=== PATIENT | female | born 1930 | race Caucasian/White ===

== ENCOUNTER 2019-07-01 14:07 | Inpatient (IN) | payer MEDICARE ==
[~2019-07-01] VITALS: Ht 162.6 cm; Wt 53.5 kg
--- NOTE | 2019-07-01 14:16 | NUR ---
PT AAOX4. BIB [facility] FROM AN URGENT CARE, PT WENT THERE BECAUSE OF SUDDEN DIZZINESS. UPON ASSESSMENT NO NEURO DEFICIT, RR EVEN AND UNALABORED. LABS COLLECTED, AND IV INITIATED. MD AT BEDSIDE. WILL CONTINUE TO MONITOR.
[2019-07-01] MEDS ORDERED: IV NS 0.9% 500 ML BAG IV ONE (14:30)
[2019-07-01 14:43] LABS: BASOPHILS # (AUTO) 0.1 /CMM (0.0-0.2); BASOPHILS % (AUTO) 1.4 % (0.0-2.0); EOSINOPHILS % (AUTO) 1.6 % (0.0-6.0); HEMATOCRIT 35 % (33-45); HEMOGLOBIN 12.2 g/dL (11.5-14.8); LYMPHOCYTES # (AUTO) 1.5 /CMM (0.8-4.8); LYMPHOCYTES % (AUTO) 21.1 % (20.0-44.0); MEAN CORPUSCULAR HGB CONC 35 g/dl (31.0-36.0); MEAN CORPUSCULAR VOLUME 104 fL (82-100); MONOCYTES # (AUTO) 0.8 /CMM (0.1-1.30); MONOCYTES % (AUTO) 11.8 % (2.0-12.0); NEUTROPHILS # (AUTO) 4.5 /CMM (1.8-8.9); NEUTROPHILS % (AUTO) 64.1 % (43.0-81.0); PLATELET COUNT (AUTO) 476 /CMM (150-450); RED BLOOD CELL COUNT(AUTO) 3.39 MIL/uL (4.0-5.2); WHITE BLOOD COUNT (AUTO) 7.1 K/uL (4.3-11.0)
[2019-07-01 14:44] LABS: CALCIUM, SERUM 9.4 mg/dL (8.5-10.1); CARBON DIOXIDE 24 mmol/L (21-32); CHLORIDE 99 mmol/L (98-107); GLUCOSE 133 mg/dL (74-106); SODIUM SERUM 136 mmol/L (136-145); UREA NITROGEN, BLOOD 14 mg/dL (7-18)
[2019-07-01 14:49] LABS: ALANINE AMINOTRANSFERASE 27 U/L (12-78); ALBUMIN 4.2 g/dL (3.4-5.0); ALKALINE PHOSPHATASE 65 U/L (46-116); ASPARTATE AMINOTRANSFERASE 24 U/L (15-37); BILIRUBIN,DIRECT 0.1 mg/dL (0.0-0.2); BILIRUBIN,TOTAL 0.6 mg/dL (0.2-1.0); TOTAL PROTEIN, SERUM 7.6 g/dL (6.4-8.2)
[2019-07-01] MEDS ORDERED: LEVO25TA7 PO (14:49)
[2019-07-01] MEDS ORDERED: CLON1PAT TD (14:49)
[2019-07-01] MEDS ORDERED: PANT40TA2 PO (14:49)
[2019-07-01] MEDS ORDERED: METF-440 PO (14:49)
[2019-07-01] MEDS ORDERED: EPLE25TA10 PO (14:49)
[2019-07-01] MEDS ORDERED: APIX2.5T PO (14:49)
[2019-07-01] MEDS ORDERED: QUET25TA PO (14:49)
[2019-07-01] MEDS ORDERED: LOSA100T31 PO (14:49)
[2019-07-01] MEDS ORDERED: ATOR40TA PO (14:49)
[2019-07-01 14:57] LABS: APPEARANCE,URINE Clear (CLEAR); BILIRUBIN,URINE Negative (NEGATIVE); BLOOD, URINE Negative Ery/uL (NEGATIVE); COLOR,URINE Yellow (YELLOW); KETONES,URINE Negative (NEGATIVE); LEUKOCYTE ESTERASE ,URINE Negative (NEGATIVE); NITRITE, URINE Negative (NEGATIVE); PROTEIN,URINE Negative (NEGATIVE); UGLUCOSE Negative (NEGATIVE); UROBILINOGEN,URINE 0.2 EU/dL (0.2)
--- NOTE | 2019-07-01 15:06 | NUR ---
Leonor howard in [facility] - 07/01/19 at 1712 by KAILEY CALLED [facility] FOR MEDICAL HX AND MED LIST INFO FOR PT. WILL FAX OVER INFO. WHEN READY TO PRESENT, CALL BACK [facility].
--- NOTE | 2019-07-01 15:39 | NUR ---
Leonor howard in [facility] - 07/01/19 at 1608 by KAILEY CURLY BRIDGES.
--- NOTE | 2019-07-01 15:39 | NUR ---
PAGED [facility].
--- NOTE | 2019-07-01 15:40 | NUR ---
left a message on Jesus
--- NOTE | 2019-07-01 15:44 | NUR ---
CALLED HER [employer]IL WELL SHOOTER [phone] AND LEFT A MESSAGE AT PTS REQUEST
--- NOTE | 2019-07-01 15:48 | NUR ---
CALLED [facility] [phone] AND SPOKE WITH HIM. GAVE HIM THE HOSPITAL NUMBER
--- NOTE | 2019-07-01 16:05 | NUR ---
CALLED NURSING SUP FOR TELE BED.
[2019-07-01] MEDS ORDERED: ACETAMINOPHEN 325 MG TABLET PO PRN (16:30)
[2019-07-01] MEDS ORDERED: MORPHINE SULFATE INJ 2 MG/ML DISP.SYRIN IV PRN (16:30)
[2019-07-01] MEDS ORDERED: MAG HYDROX/AL HYDROX/SIMETH 30 ML UDC PO PRN (16:30)
[2019-07-01] MEDS ORDERED: HYDROCODONE/APAP 5/325MG 1 EACH TABLET PO PRN (16:30)
[2019-07-01] MEDS ORDERED: ONDANSETRON HCL/PF 4 MG/2 ML VIAL IVP PRN (16:30)
[2019-07-01] MEDS ORDERED: MAGNESIUM HYDROXIDE 30 ML UDC PO PRN (16:30)
--- NOTE | 2019-07-01 16:31 | NUR ---
nursing sup gave [phone].
--- NOTE | 2019-07-01 16:44 | NUR ---
REPORT MARISSA MORRIS RN FOR KORY
[2019-07-01 17:00] VITALS: BP 188/75
[2019-07-01] MEDS ORDERED: hydrALAZINE HCL IV 20 MG VIAL IV PRN (17:00)
[2019-07-01] MEDS ORDERED: CLONIDINE HCL 0.1MG/24H PTWK 1 EA PATCH TD SCH (17:00)
--- NOTE | 2019-07-01 17:39 | NUR ---
PT TRANSFERED PER [facility] [employer]
[2019-07-01] MEDS: METFORMIN 500 MG TABLET PO SCH (17:47)
--- NOTE | 2019-07-01 17:51 | NUR ---
FACILITY SECURITY OFFICER OPENING NOTES RECEIVED PATIENT VIA OYE!FREEDOM. ALERT AND ORIENTED X4. NO SOB. DENIES ANY C/O PAIN NOR DISCOMFORT AT THIS TIME. NOTED BP 188/80, PRN BP MED GIVEN ORDERED. PATIENT DENIES ANY C/O HEADACHE, DIZZINESS, PRESSURE OR ANY OTHER S/S OF PAIN NOR DISCOMFORT. AMBULATORY WITH STEADY GAIT. ON TELEMONITORING SR 82. BLE EDEMA NON PITTING OBSERVED. ELEVATED WITH PILLOW. ATE DINNER WITH FAIR INTAKE. BS 133 MG/DL. ORIENTED PATIENT TO ROOM, ROOMMATE AND UNIT. BED IN LOWEST POSITION, LOCKED. BED ALARM ON. CALL LIGHT WITHIN REACH. BED SIDERAILS UP X2.
[2019-07-01 18:03] LABS: MAGNESIUM 1.5 mg/dL (1.8-2.4); PHOSPHORUS 3.8 mg/dL (2.5-4.9)
[2019-07-01] MEDS: AMLODIPINE BESYLATE 10 MG TABLET PO SCH (18:05)
[2019-07-01] MEDS: APIXABAN 2.5 MG TABLET PO SCH (18:05)
[2019-07-01 18:16] LABS: THYROID STIMULATING HORMONE 0.969 uIU/mL (0.358-3.74)
[2019-07-01] MEDS: IV NS 0.9% 1,000 ML IV PRN (18:22)
--- NOTE | 2019-07-01 18:50 | NUR ---
MS RN NOTES IV NS 75ML/HR STEPHANIE WELL INFUSING TO RIGHT WRIST IV ACCESS # [id number] INTACT AND PATENT.
--- NOTE | 2019-07-01 18:55 | NUR ---
HEALTHCARE CONSULTANT NOTES PATIENT RESTING COMFORTABLY IN BED. ENDORSED TO ONCOMING SHIFT FOR CONTINUATION OF CARE. IN NO APPARENT DISTRESS.
--- NOTE | 2019-07-01 19:45 | NUR ---
LEATHER GOODS ASSEMBLER OPENING NOTES PATIENT AWAKE IN BED UPON ARRIVAL. A/O X4. ON ROOM AIR. NO S/S OF ACUTE RESPIRATORY DISTRESS AND NO COMPLAINTS OF PAIN AT THIS TIME. PATIENT ALSO DENIES ANY DIZZINESS AT THE MOMENT. TELE MONITOR READING SINUS RHYTHM WITH BBB, HEART RATE 74. IV PRESENT ON RIGHT WRIST, SIZE 18, INTACT & PATENT, NS RUNNING AT 75 ML/HR. BED LOCKED, ALARM ON, SIDE RAILS X2, SEMI-FRANCIS'S POSITION, CALL LIGHT WITHIN REACH. WILL CONTINUE TO MONITOR.
[2019-07-01 20:00] VITALS: BP 164/58
[2019-07-01] MEDS: CALCIUM CARBONATE 500 MG TAB.CHEW PO SCH (21:07)
[2019-07-01] MEDS ORDERED: QUETIAPINE FUMARATE 25 MG TABLET PO SCH (22:00)
[2019-07-01] MEDS ORDERED: ATORVASTATIN 40 MG TABLET PO SCH (22:00)
[2019-07-01] MEDS ORDERED: MAGNESIUM OXIDE 400 MG TABLET PO ONE (22:00)
[2019-07-02] VITALS: BP 137/67
[2019-07-02 04:00] VITALS: BP 125/61
[2019-07-02 04:35] VITALS: BP 125/61
[2019-07-02 07:05] LABS: BASOPHILS # (AUTO) 0.1 /CMM (0.0-0.2); EOSINOPHILS % (AUTO) 5.7 % (0.0-6.0); HEMATOCRIT 31 % (33-45); LYMPHOCYTES # (AUTO) 1.5 /CMM (0.8-4.8); LYMPHOCYTES % (AUTO) 26.9 % (20.0-44.0); MEAN CORPUSCULAR HGB CONC 35 g/dl (31.0-36.0); MEAN CORPUSCULAR VOLUME 102 fL (82-100); MONOCYTES # (AUTO) 0.8 /CMM (0.1-1.30); MONOCYTES % (AUTO) 14.6 % (2.0-12.0); NEUTROPHILS # (AUTO) 2.9 /CMM (1.8-8.9); NEUTROPHILS % (AUTO) 51.8 % (43.0-81.0); PLATELET COUNT (AUTO) 441 /CMM (150-450); RED BLOOD CELL COUNT(AUTO) 3.04 MIL/uL (4.0-5.2); WHITE BLOOD COUNT (AUTO) 5.7 K/uL (4.3-11.0)
--- NOTE | 2019-07-02 07:07 | NUR ---
STORE CLERK CHECKER CLOSING NOTES PATIENT SLEEPING IN BED, EASY TO AWAKEN. A/O X 4. ON ROOM AIR. NO S/S OF ACUTE RESPIRATORY DISTRESS AND NO COMPLAINTS OF PAIN AT THIS TIME. 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 IV PRESENT ON RIGHT WRIST, SIZE 18, INTACT & PATENT, WITH NS RUNNING AT 75 ML/HR. BED LOCKED, ALARM ON, LOW-FRANCIS'S POSITION, SIDE RAILS X2, CALL LIGHT WITHIN REACH. WILL ENDORSE TO DAY SHIFT NURSE TO FOLLOW PLAN OF CARE.
[2019-07-02 07:18] LABS: CREATININE 0.8 mg/dL (0.6-1.3); MAGNESIUM 1.5 mg/dL (1.8-2.4); PHOSPHORUS 3.6 mg/dL (2.5-4.9); POTASSIUM 4.1 mmol/L (3.5-5.1)
[2019-07-02 07:23] LABS: THYROID STIMULATING HORMONE 2.37 uIU/mL (0.358-3.74)
[2019-07-02] MEDS ORDERED: LEVOTHYROXINE SODIUM 25 MCG TABLET PO SCH (07:30)
[2019-07-02] MEDS ORDERED: PANTOPRAZOLE 40 MG TABLET.DR PO SCH (07:30)
--- NOTE | 2019-07-02 07:40 | NUR ---
TELE/RN OPENING NOTES RECEIVED PATIENT AWAKE AND ORIENTED X4 RESTING IN BED COMFORTABLY. ON ROOM AIR. NO S/S OF ACUTE RESPIRATORY DISTRESS. NO COMPLAINTS OF PAIN AND DIZZINESS AT THIS TIME. TELE MONITOR READING SINUS RHYTHM W/ 1ST DEGREE AV BLOCK & BBB AT 60. IV PRESENT ON RIGHT WRIST, SIZE 18, INTACT & PATENT, WITH NS RUNNING AT 75 ML/HR. BED LOCKED, ALARM ON, LOW-FRANCIS'S POSITION, SIDE RAILS X2, CALL LIGHT WITHIN REACH. WILL CONTINUE TO MONITOR..
--- NOTE | 2019-07-02 07:48 | NUR ---
TELE/RN NOTES BS- 148MG/DL, ACCU- CHECK TAKEN DUE TO HISTORY OF DM, NO COVERAGE AT THI TIME.
[2019-07-02 07:54] VITALS: BP 130/60
[2019-07-02] MEDS ORDERED: EPLERENONE 25 MG PO SCH (09:00)
[2019-07-02] MEDS ORDERED: LOSARTAN POTASSIUM 25 MG TABLET PO SCH (09:00)
[2019-07-02] MEDS: CALCIUM CARBONATE 500 MG TAB.CHEW PO SCH (09:19)
[2019-07-02] MEDS: METFORMIN 500 MG TABLET PO SCH (09:20)
[2019-07-02] MEDS: AMLODIPINE BESYLATE 10 MG TABLET PO SCH (09:20)
[2019-07-02] MEDS: APIXABAN 2.5 MG TABLET PO SCH (09:27)
[2019-07-02] MEDS: Magnesium 1GM/D5W 100ML PREMIX 100 ML IV SCH ×2 (10:22→11:47)
[2019-07-02 10:26] VITALS: BP 130/60
[2019-07-02] MEDS: IV NS 0.9% 1,000 ML IV PRN (10:31)
--- NOTE | 2019-07-02 14:29 | NUR ---
TELE/RN NOTES PATIENT IS ALERT AND ORIENTED X4, DENIES PAIN, IN ROOM AIR AND SATURATION IS AT 98%.RESPIRATION REGULAR AND UNLABORED. NO RESPIRATORY DISTRESS NOTED, NO SHORTNESS OF BREATH. DISCHARGED INSTRUCTION AND EDUCATION WAS GIVEN. PATIENT VERBALIZED UNDERSTANDING. THE PATIENT LEFT THE HOSPITAL AT 13:58 ACCOMPANIED BY VARGAS ISSA THE DAUGHTER IN A PRIVATE VEHICLE.
== END 2019-07-02 14:00 | disposition home or self-care (01) | DRG 305 ==
LOC: ER 14:10 → TELE 16:39 → MED 07-02 08:47
PROVIDERS: ADMIT Nurse Practitioner Acute Care; ATTEND Nurse Practitioner Acute Care
DX: I16.0 Hypertensive urgency (principal); R55 Syncope and collapse; I25.10 Atherosclerotic heart disease of native coronary artery without angina pectoris; E78.5 Hyperlipidemia, unspecified; E86.0 Dehydration; I11.0 Hypertensive heart disease with heart failure; D64.9 Anemia, unspecified; E03.9 Hypothyroidism, unspecified; E11.9 Type 2 diabetes mellitus without complications; I50.9 Heart failure, unspecified; Z86.718 Personal history of other venous thrombosis and embolism; Z86.73 Personal history of transient ischemic attack (TIA), and cerebral infarction without residual deficits; Z79.01 Long term (current) use of anticoagulants; Z79.84 Long term (current) use of oral hypoglycemic drugs; R53.1 Weakness; E83.42 Hypomagnesemia; R29.6 Repeated falls
CPT/HCPCS: 36415; 70450-TC; 71045-TC; 80048-TC; 80061-TC; 80076-TC; 81000-TC; 82728-TC; 82962-TC; 83540-TC; 83735-TC; 84100-TC; 84439-TC; 84443-TC; 84484-TC; 85025-TC; 87081-TC; 93307-TC; 97116-TC; 97530-TC; G0378; J0360; J3475; J7030; J7040

== ENCOUNTER 2020-08-16 13:56 | Emergency (ER) | payer MEDICARE ==
[~2020-08-16] VITALS: Ht 165.1 cm; Wt 57.6 kg
[~2020-08-16 13:56] MED LIST: APIX2.5T PO; ATOR40TA PO; CLON1PAT TD; EPLE25TA10 PO; LEVO25TA7 PO; LOSA100T31 PO; METF-440 PO; PANT40TA2 PO; QUET25TA PO
--- NOTE | 2020-08-16 14:25 | NUR ---
KAILEE COMING FROM A BOOKSTORE. TO ER BED 7. AAOX4. NOT IN RESP DISTRESS, BREATHING EVEN AND UNLABORED. BROUGHT IN FOR A NEAR SYNCOPAL EPISODE. PER PT, SHE WAS WALKING BACK TO HER CAR COMING FROM THE BOOKSTORE WHEN SHE FELT DIZZY AND ABOUT TO FAINT. PT WAS ABLE TO SIT DOWN AND AVOIDED ANY FALL OR INJURY. RIGHT NOW PT VERBALIZED THAT SHE FEELS BETTER COMPARED TO EARLIER. ON MONITOR . MD WAS AT THE BEDSIDE
[2020-08-16 15:47] LABS: BASOPHILS # (AUTO) 0.1 /CMM (0.0-0.2); BASOPHILS % (AUTO) 1.3 % (0.0-2.0); EOSINOPHILS % (AUTO) 0.4 % (0.0-6.0); HEMATOCRIT 31 % (33-45); HEMOGLOBIN 10.8 g/dL (11.5-14.8); LYMPHOCYTES # (AUTO) 1.1 /CMM (0.8-4.8); LYMPHOCYTES % (AUTO) 15.7 % (20.0-44.0); MEAN CORPUSCULAR HGB CONC 34 g/dl (31.0-36.0); MEAN CORPUSCULAR VOLUME 106 fL (82-100); MONOCYTES # (AUTO) 0.8 /CMM (0.1-1.30); MONOCYTES % (AUTO) 10.9 % (2.0-12.0); NEUTROPHILS % (AUTO) 71.7 % (43.0-81.0); PLATELET COUNT (AUTO) 408 /CMM (150-450); RED BLOOD CELL COUNT(AUTO) 2.94 MIL/uL (4.0-5.2)
[2020-08-16 15:57] LABS: CALCIUM, SERUM 8.6 mg/dL (8.5-10.1); CARBON DIOXIDE 24 mmol/L (21-32); CHLORIDE 98 mmol/L (98-107); CREATININE 0.9 mg/dL (0.6-1.3); GLUCOSE 126 mg/dL (74-106); POTASSIUM 4.7 mmol/L (3.5-5.1); SODIUM SERUM 133 mmol/L (136-145); UREA NITROGEN, BLOOD 15 mg/dL (7-18)
[2020-08-16] MEDS ORDERED: TELM80TA9 PO (16:45)
[2020-08-16] MEDS ORDERED: FAMO40TA7 PO (16:45)
[2020-08-16] MEDS ORDERED: METF-440 PO (16:45)
[2020-08-16] MEDS ORDERED: AMLO2.5T4 PO (16:46)
--- NOTE | 2020-08-16 17:37 | NUR ---
Patient does not wish to proceed with medical care recommended by Corby Clements. Patient given information related to possible complications, up to and including , which could occur as a result of leaving the hospital at this time. Patient verbalizes understanding of risks involved due to leaving against medical advice. Patient has signed AMA form.
[2020-08-16 17:45] VITALS: BP 119/61
--- NOTE | 2020-08-16 17:45 | NUR ---
IV removed. Catheter intact and site benign. Pressure and 4x4 applied to site. No bleeding noted. Pt ambulatory with a steady gait
== END 2020-08-16 17:46 | disposition left against medical advice (07) ==
LOC: ER 14:19
DX: R55 Syncope and collapse (principal); D64.9 Anemia, unspecified; I10 Essential (primary) hypertension; E11.9 Type 2 diabetes mellitus without complications; E78.5 Hyperlipidemia, unspecified; I48.91 Unspecified atrial fibrillation; E03.9 Hypothyroidism, unspecified; Z86.73 Personal history of transient ischemic attack (TIA), and cerebral infarction without residual deficits; Z60.2 Problems related to living alone; Z79.899 Other long term (current) drug therapy; Z79.84 Long term (current) use of oral hypoglycemic drugs
CPT/HCPCS: 36415; 70450-TC; 71045-TC; 80048-TC; 82962-TC; 84484-TC; 85025-TC